=== PATIENT | male | born 1950 | race Caucasian/White ===

== ENCOUNTER → 2016-12-28 | Outpatient (CLI) | payer MEDICARE, BC ==
[~2016-12-28] MED LIST: ASPIRIN81 M1 PO; CALCIUM/MAG/ZINC PO; CIPRO PO; DIOVAN PO; DIOVAN320 MG PO; DUONEB 2.5-0.5 M3 ML NEB; FLOMAX0.4 M1 DOB; FLOMAX0.4 MG PO; GLIPIZIDE10 MG PO; GUAIFENEX DM; HUMULIN N100 UNIT/1; HYDROCHLOROT PO; INVOKANA100 MG PO; JANUMET 50-1,1 UDTAB PO; JANUMET XR 50-1 EAC1 PO; KEFLEX500 MG PO; LASIX20 MG PO; LEVEMIR FL100 UNIT/1; LEVEMIR SUBQ; LEVEMIR100 U/ML SQ; LORTAB 5/500 TA1 TA1 PO; METFORMIN PO; METOPROLOL TAR25 MG PO; MUCINEX PO; NIASPAN1000 M1 PO; NORVASC PO; NOVOLOG100 U/M2; NOVOLOG100 U/M2 SQ; PRAVASTATIN SOD40 MG PO; SYMLINPEN 1202.7 ML; SYMLINPEN 1202.7 ML SQ; SYMLINPEN 1202.7 ML SUBQ; TOPROL XL50 MG PO; VYTORIN 10/40 T1 TAB PO
--- NOTE | ~2016-12-28 | ST ---
Unit #: [id number] #: [id number] Patient: SILVANA HARDEN [id number] [facility]. [address] [address] [id number] O MR#: [id number] NAME: SILVANA HARDEN : 1950 SEX: M STUDY DATE/TIME: UNIT: [facility] ROOM: STUDY DESCRIPTION: Stress Test Attending Physician: Shanell Rendon M.D. Referring Physician: Shanell Rendon M.D. Primary Care Physician: Kevin Castañeda M.D. CARDIOLOGY REPORT EXAM Walking Lexiscan Cardiolite Stress Test DESCRIPTION Baseline EKG - normal sinus rhythm with ventricular rate 73 beats/minute, left atrial abnormality, slow R wave progression, low voltage in inferior leads. Lexiscan is a four minute test with Lexiscan being injected within the first minute followed by Cardiolite. EKG during the test showed some 0.[address] depression in inferior and anterolateral leads with T wave inversion in inferior leads. Maximum heart rate response was 139 beats/minute with a maximum blood pressure response of 190/90 mmHg. It was noted at the end of recovery phase, the ST-T wave abnormalities improved. Last blood pressure reading was 143/85 mmHg. The patient had no complaints of chest pain, palpitations or dizziness. Had increased shortness of breath and fatigueness which resolved in recovery phase. Cardiolite was injected after Lexiscan within the first minute of the test. Radionuclide test pending. Please correlate with nuclear images. Dictated by... Elizabeth StoutPEstelleREstelleNEstelle for Cristopher Mccarthy/yuniel TD: 12/28/2016 10:19 JOB #: [id number] Unit #: [id number] #: [id number] Patient: SILVANA HARDEN CARDIOLOGY REPORT Page 1 of 1 X Xi Saleh APRN CARDIOLOGY REPORT
--- NOTE | ~2016-12-28 | TH ---
Unit #: [id number] #: [id number] Patient: SILVANA HARDEN [id number] [facility]. [address] [address] [id number] O MR#: [id number] NAME: SILVANA HARDEN : 1950 SEX: M STUDY DATE/TIME: 12/28/2016 UNIT: [facility] ROOM: STUDY DESCRIPTION: Cardiolite imaging Attending Physician: Shanell Rendon M.D. Referring Physician: Shanell Rendon M.D. Primary Care Physician: Kevin Castañeda M.D. CARDIOLOGY REPORT EXAM Cardiolite imaging. PROCEDURE Using technetium 99m labeled Cardiolite, rest and stress SPECT images were obtained. Multiple SPECT images were obtained in various views, including horizontal and vertical long axis and short axis views of the left ventricle. Images were obtained by gated SPECT method. The patient was administered 9.86 mCi of Cardiolite at rest and 35.9 mCi of Cardiolite after Lexiscan infusion was completed. On the stress images there is a medium sized area of moderate decreased isotope activity inferiorly. The rest images also show a medium sized area of decreased isotope activity inferiorly. Comparing rest and stress images there is a medium sized area of predominantly fixed defect seen inferiorly. Cannot rule out soft tissue artifact versus infarct. No obvious stress induced ischemia noted. The left ventricular ejection fraction is calculated to be 62%. There is no focal wall motion abnormality seen. CONCLUSION 1. There is a medium sized area of predominantly fixed defect seen inferiorly. Cannot rule out inferior wall myocardial infarction versus soft tissue artifact. 2. No obvious stress induced ischemia noted. 3. The left ventricular ejection fraction is calculated to be 62%. 4. There is no obvious wall motion abnormality seen. 5. Technically limited study because of the patient's large body habitus. Clinical correlation is requested. 6. It must be noted that the patient had 0.[address] depression noted with Lexiscan. Clinical correlation is requested. Dictated by... Cristopher Mccarthy TD: 12/28/2016 14:10 JOB #: [id number] CC: Cristopher Mccarthy M.D. Unit #: [id number] #: [id number] Patient: DERECKSILVANA Em CARDIOLOGY REPORT Page 1 of 1 X Shanell Rendon MD <ELECTRONICALLY SIGNED> 04/06/17 2183 CARDIOLOGY REPORT
== END | disposition home or self-care (01) ==
LOC: CNUC 06:56
DX: R06.09 Other forms of dyspnea (principal); I10 Essential (primary) hypertension; E78.5 Hyperlipidemia, unspecified
CPT/HCPCS: 78452; 93017; A9500; J2785